=== PATIENT | female | born 1995 | race Caucasian/White ===

== ENCOUNTER 2017-03-02 08:28 | Outpatient (CLI) | payer MEDICAID ==
[2017-06-08 16:27] LABS: ADD UMIC YES; UR ASCORBIC ACID NEGATIVE (NEGATIVE); UR BILIRUBIN (Dip) NEGATIVE (NEGATIVE); UR BLOOD (Dip) 3+ mg/dL (NEGATIVE); UR CLARITY CLEAR (CLEAR); UR COLOR YELLOW (YELLOW); UR GLUCOSE (Dip) NEGATIVE (NEGATIVE); UR KETONES (Dip) NEGATIVE (NEGATIVE); UR LEUKOCYTE ESTERASE (Dip) NEGATIVE Leu/ul (NEGATIVE); UR NITRITE (Dip) NEGATIVE (NEGATIVE); UR RBC 42 /HPF (0-5); UR SPECIFIC GRAVITY (Dip) 1.005 (1.003-1.030); UR SQUAMOUS EPITHELIAL CELL FEW /HPF (FEW); UR TOTAL PROTEIN (Dip) NEGATIVE (NEGATIVE); UR UROBILINOGEN (Dip) NEGATIVE (NEGATIVE); UR WBC 4 /HPF (0-5)
[2017-06-08] MEDS: ACETAMINOPHEN 500 MG TAB PO (17:48)
== END 2017-06-08 20:32 | disposition home or self-care (01) ==
LOC: OBT 08:28 → L-D 08:29 → OBT 08:29
DX: O26.893 Other specified pregnancy related conditions, third trimester (principal); R10.30 Lower abdominal pain, unspecified; O99.89 Other specified diseases and conditions complicating pregnancy, childbirth and the puerperium; N13.30 Unspecified hydronephrosis; O46.8X3 Other antepartum hemorrhage, third trimester; Z3A.33 33 weeks gestation of pregnancy
CPT/HCPCS: 76775; 76817; 76818; 81001; 82962; 87086

== ENCOUNTER 2017-03-02 08:58 | Emergency (ER) | payer SELFPAY, MEDICAID | END 2017-03-05 11:25 | disposition left against medical advice (07) | LOC: E/R 03-05 11:25 | DX: Z53.21 Procedure and treatment not carried out due to patient leaving prior to being seen by health care provider (principal) ==

== ENCOUNTER 2017-07-06 21:45 | Outpatient (CLI) | payer MEDICAID ==
[2017-07-06 22:57] LABS: ADD UMIC YES; UR ASCORBIC ACID NEGATIVE (NEGATIVE); UR BILIRUBIN (Dip) NEGATIVE (NEGATIVE); UR BLOOD (Dip) NEGATIVE (NEGATIVE); UR CLARITY CLEAR (CLEAR); UR COLOR STRAW (YELLOW); UR GLUCOSE (Dip) NEGATIVE (NEGATIVE); UR KETONES (Dip) NEGATIVE (NEGATIVE); UR LEUKOCYTE ESTERASE (Dip) TRACE Leu/ul (NEGATIVE); UR NITRITE (Dip) NEGATIVE (NEGATIVE); UR RBC 0 /HPF (0-5); UR SPECIFIC GRAVITY (Dip) 1.001 (1.003-1.030); UR TOTAL PROTEIN (Dip) NEGATIVE (NEGATIVE); UR UROBILINOGEN (Dip) NEGATIVE (NEGATIVE); UR WBC 0 /HPF (0-5)
== END 2017-07-07 00:35 | disposition home or self-care (01) ==
LOC: OBT 21:45 → L-D 21:48
DX: O62.9 Abnormality of forces of labor, unspecified (principal); O24.419 Gestational diabetes mellitus in pregnancy, unspecified control; O28.0 Abnormal hematological finding on antenatal screening of mother; Z3A.37 37 weeks gestation of pregnancy
CPT/HCPCS: 76818; 81001

== ENCOUNTER 2017-07-19 13:47 | Outpatient (CLI) | payer MEDICAID | END 2017-07-19 16:25 | disposition home or self-care (01) | LOC: OBT 13:47 → L-D 13:48 → OBT 16:25 | DX: O62.9 Abnormality of forces of labor, unspecified (principal); O24.419 Gestational diabetes mellitus in pregnancy, unspecified control; O28.0 Abnormal hematological finding on antenatal screening of mother; Z3A.38 38 weeks gestation of pregnancy | CPT/HCPCS: 76818; 82962 ==